=== PATIENT | male | born 1990 | race Caucasian/White ===

== ENCOUNTER 2019-08-13 20:41 | Emergency (ER) | payer OTHER, SELFPAY ==
--- NOTE | ~2019-08-13 | XR_ITS ---
XR abdomen/kub 1V 08/13/2019 21:30 INDICATION: Left-sided abdomen pain for 2 days TECHNIQUE: KUB COMPARISON: None FINDINGS: Bowel gas pattern is normal. There is no evidence of free air, mass, organomegaly, ascites or obstruction. No abnormal calculi are seen. The bones appear intact. Mild levoscoliosis of the l umbar spine. IMPRESSION: 1: No acute abdominal abnormality identified. Reviewed, dictated and finalized at location A.
--- NOTE | ~2019-08-13 | XR_ITS ---
EXAMINATION: XR chest 2V 08/13/2019 21:29 INDICATION: Left-sided chest pain. PROCEDURE: 2 view chest COMPARISON: No prior studies for comparison. FINDINGS: The lungs are clear. The cardiomediastinal silhouette is within normal limits. There are no pleural effusions. There is no pneumothorax suspected. IMPRESSION: 1: NO ACUTE CARDIOPULMONARY DISEASE. Reviewed, dictated and finalized at location A.
[2019-08-13 20:49] VITALS: BP 123/96; PULSE 85; RESP 18; TEMP 37; O2SAT 100
--- NOTE | 2019-08-13 20:52 | ECG_ITS ---
Measurements Intervals [place] Rate: 78 P: 24 [place]: 132 QRS: -9 QRSD: 102 T: 30 QT: 377 QTc: 430 Interpretive Statements SINUS RHYTHM WITH SINUS ARRHYTHMIA DELAYED PRECORDIAL R/S TRANSITION BORDERLINE ECG Electronically Signed On 08-14-2019 7:11:43 CDT by Stanley Ortega D.O.
--- NOTE | 2019-08-13 21:17 | ED.CHESTPAIN ---
HPI - Chest Pain General Chief Complaint: Chest Pain Stated Complaint: cp,palpations Time Seen by Provider: 08/13/19 20:56 History of Present Illness HPI narrative: Woman presents for chest pain abdominal pain multiple complaints. He says he has chest pain which goes up into the throat and down into the abdomen. He went to [facility] and they were not able to find the cause. He denies anxiety or hyperventilation. He says the pain goes down to his left lower quadrant and he points with his fingers in the distribution of the distal colon sigmoid colon. He does not pass his bowel daily, and says that he seldom has to strain. His mother said to have the gallbladder checked out. He is worried it is his kidneys. He says he has stomach acid but this pain going into his chest is not that. His surgeries include circumcision and wisdom tooth extraction. He denies smoking drinking and drugs. He is unemployed. MD complaint: chest pain Pertinent past history: other (None) Onset (ago): week(s) Timing of current episode: episodic Prior episodes: Yes Onset: during rest Pain location: substernal and left chest Pain radiation: other (Throat) Severity: moderate Quality: tightness and heaviness Relieving factors: nothing Exacerbating factors: nothing Related Data Home Medications Medication Instructions Recorded Confirmed famotidine 20 mg PO BID 08/13/19 metoclopramide HCl 10 mg PO USEASDIRECTD 08/13/19 Allergies Allergy/AdvReac Type Severity Reaction Status Date / Time No Known Allergies Allergy Verified 08/13/19 22:06 Review of Systems Review of Systems: Narrative: CONSTITUTIONAL: Denies fever, chills, or sweats. EYES: Denies visual changes, redness, or discharge. ENT: Denies rhinorrhea, congestion, sore throat, or otalgia. CARDIOVASCULAR: He has chest pain, palpitations. RESPIRATORY: Denies cough, but he has shortness of breath. GASTROINTESTINAL: He has abdominal pain, but no nausea, vomiting, or diarrhea. GENITOURINARY: Denies dysuria or hematuria. SKIN: Denies rash or itching. MUSCULOSKELETAL: Denies back pain, joint pain, or myalgia. NEUROLOGIC: Denies headache, numbness, or weakness. PSYCHIATRIC: Denies anxiety or depression. All systems reviewed & are unremarkable except as noted in HPI and below PMFSH Past Medical History Medical History Anxiety Hyperventilation Overweight Surgical History Surgical History (Updated 08/13/19 @ 21:23 by Minnie Kathleen MD) History of circumcision History of wisdom tooth extraction Social History Social History (Updated 08/13/19 @ 21:23 by Minnie Kathleen MD) Smoking status: Never smoker Alcohol intake: never Substance use: never Exam Narrative: Exam Narrative: GENERAL: Overweight, anxious, multiple scabs on his hands. HEAD: Normocephalic, atraumatic. EYES: PERRLA and EOMI. ENT: Nares clear, no rhinorrhea or epistaxis. Mucous membranes moist. NECK: Supple. CHEST: Clear to auscultation. No respiratory distress. HEART: Regular rate and rhythm. No murmur heard. Normal peripheral pulses. ABDOMEN: Soft, nontender, nondistended, normal active bowel sounds. EXTREMITIES: Normal range of motion. No edema. SKIN: Warm, dry, no rash. NEURO: No focal deficits. Alert and oriented x3. PSYCH: Very anxious. Course Reevaluation(s) Reevaluation #1: Went in to tell the patient that his blood work and other tests were all normal. We were still waiting for his urine. He is ready to give it. His aunt is present and he gives me permission to speak in front of her. She has no other concerns. Date: 08/13/19 Time: 22:18 Reevaluation #2: Went in to tell the patient and his aunt about all the good normal test, but he still is complaining that his chest pain comes and goes, and how can I be sure that he does not have any disease. I explained that the Xanax has helped him remarkably that he looks much better, but that I a
[2019-08-13 21:18] LABS: Basophils Absolute Auto 0.1 K/mm3 (0.0-0.1); Eosinophils Absolute Auto 0.7 K/mm3 (0-0.3); Eosinophils Percent Auto 7.9 % (0-4.4); Hematocrit 44.1 % (42.0-52.0); Hemoglobin 15.5 g/dL (14.0-18.0); Immature Granulocyte Absolute 0.02 K/mm3 (0.00-0.031); Immature Granulocyte Percent A 0.2 % (0-0.5); Lymphocytes Absolute Auto 2.06 K/mm3 (0.9-3.2); Lymphocytes Percent Auto 22.7 % (18.3-44.2); Mean Corpuscular HGB Conc 35.1 g/dl (32-36); Mean Corpuscular Hemoglobin 29.8 pg (26-34); Mean Corpuscular Volume 84.6 fl (80-100); Mean Platelet Volume 9.7 fl (7.4-10.4); Monocytes Absolute Auto 0.6 K/mm3 (0.1-0.6); Monocytes Percent Auto 6.2 % (2.6-8.5); Neutrophils Absolute Auto 5.6 K/mm3 (1.3-6.7); Platelet Count Result 310 k/mm3 (150-375); Red Blood Count 5.21 M/mm3 (4.6-6.20); Red Cell Distribution Width 12.4 % (11.5-14.5); White Blood Count 9.1 K/mm3 (4.5-10.0)
[2019-08-13 21:26] LABS: Prothrombin Time 13.2 Seconds (11.1-14.7)
[2019-08-13 21:27] LABS: Blood Urea Nitrogen 17 mg/dL (9-20); Calcium 9.1 mg/dL (8.4-10.2); Carbon Dioxide 29 mmol/L (22-30); Chloride 102 mmol/L (98-107); Estimated Glomerular Filt Rate > 60; Glucose 119 mg/dL (75-110); Partial Thromboplastin Time 29.7 SECONDS (22.3-36.8); Potassium 3.8 mmol/L (3.4-5.0); Sodium 136 mmol/L (137-145)
[2019-08-13 21:30] LABS: D Dimer 0.27 ug/mL (<0.48)
[2019-08-13 21:39] LABS: Troponin I < 0.012 ng/mL (0.000-0.034)
[2019-08-13 21:40] LABS: Alveolar/Arterial O2 Gradient 14.3 mmHg; Base Excess ABG 1.4 mEq/l (+/-2.0); Fractional Inspired Oxygen 21 %; HCO3 ABG 24.9 mEq/l (22.0-26.0); Oxygen Content ABG 21.8 %vol (16.0-22.0); Oxygen Saturation ABG 97.4 % (95.0-100.0); PCO2 ABG 36.1 mmHg (35.0-45.0); PO2 ABG 92.2 mmHg (80.0-100.0); PO2 FiO2 Ratio Arterial Blood 4.39 %; Total Hemoglobin 16.1 g/dL (12.0-18.0); pH ABG 7.456 (7.350-7.450)
[2019-08-13 21:41] LABS: Device ROOM AIR; Modified Allen's Test Pass; Site Drawn RIGHT RADIAL
[2019-08-13] MEDS: ALPRAZOLAM 0.25 MG TABLET 0.5 MG PO (22:09)
[2019-08-13 22:36] LABS: Add Urine Microscopic? NO; Appearance Urine Clear (Clear); Bilirubin Urine Negative (Negative); Blood Urine Negative (Negative); Color Urine Yellow (Yellow); Glucose Urine UA Negative (Negative); Ketones Urine Negative (Negative); Leukocyte Esterase Ur Negative LEU/UL (Negative); Nitrate Urine Negative (Negative); Protein Urine Negative (Negative); Specific Grav Ur 1.019 (1.001-1.035); Urobilinogen Urine Negative mg/dL (<2.0)
[2019-08-13 22:48] LABS: Barbiturate Screen Urine Negative (Negative); Benzodiazepines Screen Urine Negative (Negative)
[2019-08-13 22:53] LABS: Amphetamine Screen Urine Negative (Negative); Cannabinoid Screen Urine Negative (Negative); Cocaine Screen Urine Negative (Negative); Methadone Screen Urine Negative (Negative); Opiate Screen Urine Negative (Negative); Phencyclidine Screen Urine Negative (Negative)
[2019-08-13 23:17] VITALS: BP 132/87; PULSE 92; RESP 18; O2SAT 98
== END 2019-08-13 23:19 | disposition home or self-care (01) ==
LOC: ANHED 21:51
PROVIDERS: Emergency Provider Emergency Medicine; PCP Emergency Medicine
DX: F41.9 Anxiety disorder, unspecified (principal); R06.4 Hyperventilation; R94.31 Abnormal electrocardiogram [ECG] [EKG]
CPT/HCPCS: 36415; 36600; 71046; 74018; 80048; 80307; 81003; 82805; 84484; 85025; 85380; 85610; 85730; 93005; 99284; A9270